=== PATIENT | male | born 1995 | race Caucasian/White ===

== ENCOUNTER 2016-11-30 19:09 | Inpatient (IN) | payer OTHER ==
[~2016-11-30] VITALS: Ht 170.2 cm; Wt 61.1 kg
[~2016-11-30 19:09] MED LIST: ANAPROX DS550 M1 PO
[2016-11-30 22:29] LABS: HEMATOCRIT 41.4 % (38.0-50.0); MCH 32.4 PG (29.0-34.0); MCHC 34.8 G/DL (30.0-36.0); RBC DIS.WIDTH-CV 11.5 % (11.8-14.6); RBC DIS.WIDTH-SD 39.5 % (39-53); RED BLOOD COUNT 4.45 M/uL (4.00-5.50); WHITE BLOOD COUNT 14.3 K/uL (4.1-10.2)
[2016-11-30 22:41] LABS: CHLORIDE 103 mEq/L (99-109); POTASSIUM 3.7 mEq/L (3.7-5.4); SODIUM 139 mEq/L (136-147)
[2016-11-30 22:44] LABS: GLUCOSE 106 mg/dL (70-99)
[2016-11-30 22:45] LABS: ANION GAP 11 MEQ/L (2-14)
[2016-11-30 22:46] LABS: TOTAL BILIRUBIN 0.6 mg/dL (0.0-1.0)
[2016-11-30 22:47] LABS: ALKALINE PHOSPHATASE 65 IU/L (3-129); SERUM ETHYL ALCOHOL < 10 mg/dL
[2016-11-30 22:48] LABS: GFR ESTIMATE (CALCULATED) > 59 mL/min/
[2016-11-30 22:49] LABS: UREA NITROGEN (BUN) 12 mg/dL (9-23)
[2016-11-30 22:52] LABS: ADD MIUA? NO; BILIRUBIN NEGATIVE; BLOOD NEGATIVE; COLOR YELLOW ((YELLOW)); GLUCOSE (STRIP) NEGATIVE; KETONES NEGATIVE; LEUKOCYTES NEGATIVE; NITRITE NEGATIVE; PROTEIN (STRIP) NEGATIVE; SPECIFIC GRAVITY 1.016 (1.000-1.030); UROBILINOGEN 0.2 MG/DL (0.2-1.0)
[2016-11-30 23:16] LABS: AMPHETAMINE NEGATIVE (500 ng/mL); BARBITURATES NEGATIVE (200 ng/mL); BENZODIAZEPINES NEGATIVE (150 ng/mL); COCAINE NEGATIVE (150 ng/mL); INTERNAL CONTROLS VALID? YES; METHADONE NEGATIVE (200 ng/mL); METHAMPHETAMINE NEGATIVE (500 ng/mL); OPIATES (MORPHINE) NEGATIVE (100 ng/mL); OXYCODONE PRESUMPTIVE POSITIVE (100 ng/mL); PHENCYCLIDINE NEGATIVE (25 ng/mL); PROPOXYPHENE NEGATIVE (300 ng/mL); THC CANNABINOIDS PRESUMPTIVE POSITIVE (50 ng/mL); TRICYCLIC ANTIDEPRESSANTS NEGATIVE (300 ng/mL)
[2016-11-30 23:17] LABS: ADD MEDTOX COMMENT Y
[2016-11-30 23:23] LABS: MEAN PLAT.VOLUME 11.8 uM^3 (9.0-12.4); PLATELET COUNT 239 K/uL (156-360)
[2016-11-30] MEDS ORDERED: BUSPAR10 MG PO (23:35)
[2016-11-30] MEDS ORDERED: LEXAPRO10 MG PO (23:35)
[2016-11-30] MEDS ORDERED: CLONAZEPAM0.5 MG PO (23:35)
[2016-12-01 02:38] VITALS: BP 125/61
[2016-12-01 07:57] VITALS: BP 101/57
[2016-12-01 16:15] VITALS: BP 114/65
[2016-12-02 08:06] VITALS: BP 128/66
[2016-12-02 15:30] VITALS: BP 125/66
[2016-12-03 08:24] VITALS: BP 83/46
[2016-12-03] MEDS ORDERED: BUSPAR15 MG PO (10:40)
[2016-12-03] MEDS ORDERED: PRAZOSIN HCL1 MG PO (10:40)
[2016-12-03] MEDS ORDERED: ESCITALOPRAM OX20 MG PO (10:40)
== END 2016-12-03 12:05 | disposition home or self-care (01) | DRG 885 ==
LOC: EME 19:09 → 1WEST 23:30 → EDOF 23:30 → 1WEST 12-01 02:28
PROVIDERS: Emergency Medicine
DX: F33.9 Major depressive disorder, recurrent, unspecified (principal); R45.851 Suicidal ideations; H54.42 Blindness, left eye, normal vision right eye; F41.9 Anxiety disorder, unspecified; F43.10 Post-traumatic stress disorder, unspecified; F51.5 Nightmare disorder; Z62.812 Personal history of neglect in childhood; Z88.0 Allergy status to penicillin; F17.210 Nicotine dependence, cigarettes, uncomplicated; F12.129 Cannabis abuse with intoxication, unspecified; F11.129 Opioid abuse with intoxication, unspecified
CPT/HCPCS: 80053; 81003; 84999; 85027; 90839; 99281; 99285; G0480; Q0177

== ENCOUNTER 2017-06-05 16:13 | Emergency (ER) | payer OTHER ==
[~2017-06-05] VITALS: Ht 170.2 cm; Wt 64.3 kg
[~2017-06-05 16:13] MED LIST changes: +BUSPAR10 MG PO; +BUSPAR15 MG PO; +CLONAZEPAM0.5 MG PO; +ESCITALOPRAM OX20 MG PO; +LEXAPRO10 MG PO; +PRAZOSIN HCL1 MG PO
[2017-06-05 18:24] VITALS: BP 117/58
== END 2017-06-05 18:34 | disposition home or self-care (01) ==
LOC: EME 16:13
DX: L72.3 Sebaceous cyst (principal); F17.200 Nicotine dependence, unspecified, uncomplicated
CPT/HCPCS: 99281; 99282

== ENCOUNTER 2017-06-24 19:05 | Emergency (ER) | payer OTHER ==
[~2017-06-24] VITALS: Ht 170.2 cm; Wt 63.9 kg
[2017-06-24 19:10] VITALS: BP 125/92
== END 2017-06-24 22:13 | disposition left against medical advice (07) ==
LOC: EME 19:05
DX: M54.9 Dorsalgia, unspecified (principal); Z53.21 Procedure and treatment not carried out due to patient leaving prior to being seen by health care provider
CPT/HCPCS: 99281; 99283

== ENCOUNTER 2018-04-07 18:50 | Emergency (ER) | payer OTHER ==
[~2018-04-07] VITALS: Ht 175.3 cm; Wt 62.5 kg
[2018-04-07] MEDS ORDERED: KENALOG,ARISTOC80 GM TP (20:06)
[2018-04-07] MEDS ORDERED: ATARAX,VISTARIL25 MG PO (20:06)
[2018-04-07 20:28] VITALS: BP 110/67
== END 2018-04-07 20:28 | disposition home or self-care (01) ==
LOC: EME 18:50
DX: L30.9 Dermatitis, unspecified (principal); Z88.0 Allergy status to penicillin
CPT/HCPCS: 99281; 99283